=== PATIENT | male | born 1955 | race Caucasian/White ===

== ENCOUNTER 2017-11-12 23:18 | Observation (INO) | payer SELFPAY ==
[~2017-11-12] VITALS: Ht 193 cm; Wt 90.7 kg
[~2017-11-12 23:18] MED LIST: LISINOPRIL10 MG PO; ZANTAC150 MG PO
[2017-11-13 00:13] LABS: HEMATOCRIT 37.8 % (38.0-50.0); HEMOGLOBIN 13.3 G/DL (12.5-16.6); MCH 31.6 PG (29.0-34.0); MCHC 35.2 G/DL (30.0-36.0); MCV 89.8 FL (86-99); PLATELET COUNT 261 K/uL (156-360); RBC DIS.WIDTH-SD 42.9 % (39-53); RED BLOOD COUNT 4.21 M/uL (4.00-5.50); WHITE BLOOD COUNT 8.1 K/uL (4.1-10.2)
[2017-11-13 00:24] LABS: ALBUMIN 3.6 g/dL (3.2-4.8); CHLORIDE 103 mEq/L (99-109); POTASSIUM 3.6 mEq/L (3.7-5.4); SODIUM 137 mEq/L (136-147)
[2017-11-13 00:27] LABS: GLUCOSE 108 mg/dL (70-99); TOTAL PROTEIN 6.5 g/dL (6.4-8.3)
[2017-11-13 00:29] LABS: TOTAL BILIRUBIN 0.5 mg/dL (0.0-1.0)
[2017-11-13 00:30] LABS: ALKALINE PHOSPHATASE 87 IU/L (3-129); CREATININE 1.2 mg/dL (0.6-1.3); GFR ESTIMATE (CALCULATED) > 59 mL/min/ (58.99-99999)
[2017-11-13 00:31] LABS: UREA NITROGEN (BUN) 14 mg/dL (9-23)
[2017-11-13 00:32] LABS: AST (GOT) 19 IU/L (2-34)
[2017-11-13 00:33] LABS: ALT (GPT) 19 IU/L (3-49)
[2017-11-13 00:34] LABS: LIPASE 29 U/L (1.0-51.0)
[2017-11-13 03:52] VITALS: BP 144/74
[2017-11-13 04:01] LABS: APPEARANCE CLEAR ((CLEAR)); BILIRUBIN NEGATIVE; BLOOD LARGE; COLOR YELLOW ((YELLOW)); GLUCOSE (STRIP) NEGATIVE; KETONES NEGATIVE; LEUKOCYTES NEGATIVE; NITRITE NEGATIVE; PROTEIN (STRIP) NEGATIVE; SPECIFIC GRAVITY 1.026 (1.000-1.030); UROBILINOGEN 0.2 MG/DL (0.2-1.0)
[2017-11-13 04:06] LABS: BACTERIA NONE SEEN /HPF; EPITHELIAL CELLS NONE SEEN /HPF; MUCUS TRACE /LPF; RED BLOOD CELLS TNTC /HPF (0-5); UCUL ADDED? YES; WHITE BLOOD CELLS NONE SEEN /HPF (0-5)
[2017-11-13 08:53] VITALS: BP 125/70
[2017-11-13] MEDS ORDERED: ZESTRIL10 MG PO (09:46)
[2017-11-13 12:31] VITALS: BP 141/87
[2017-11-13 15:31] VITALS: BP 139/68
[2017-11-13 20:17] VITALS: BP 130/71
[2017-11-13 23:59] VITALS: BP 109/61
[2017-11-14 04:21] VITALS: BP 115/64
[2017-11-14 05:48] LABS: BASOPHIL (%) 0.4 % (0-1); EOSINOPHIL COUNT 0.1 K/uL (0-0.3); HEMATOCRIT 37.8 % (38.0-50.0); HEMOGLOBIN 12.6 G/DL (12.5-16.6); IMMATURE GRANULOCYTE (%) 0.3 % (0.0-0.7); LYMPHOCYTE (%) 32.5 % (15-42); LYMPHOCYTE COUNT 2.3 K/uL (1.0-2.8); MCHC 33.3 G/DL (30.0-36.0); MCV 93.1 FL (86-99); MONOCYTE (%) 8.5 % (3-12); MONOCYTE COUNT 0.6 K/uL (0-0.8); NEUTROPHIL (%) 56.3 % (45-76); PLATELET COUNT 270 K/uL (156-360); RBC DIS.WIDTH-CV 13.2 % (11.8-14.6); RBC DIS.WIDTH-SD 45.4 % (39-53); RED BLOOD COUNT 4.06 M/uL (4.00-5.50); WHITE BLOOD COUNT 7.1 K/uL (4.1-10.2)
[2017-11-14 06:01] LABS: CHLORIDE 109 MEQ/L (99-109); CREATININE 1.1 MG/DL (0.6-1.3); GFR ESTIMATE (CALCULATED) > 59 mL/min/ (58.99-99999); GLUCOSE 97 mg/dL (70-99); SODIUM 140 MEQ/L (136-147); UREA NITROGEN (BUN) 9 mg/dL (9-23)
[2017-11-14 06:13] LABS: POTASSIUM 4.8 MEQ/L (3.7-5.4)
[2017-11-14 07:20] VITALS: BP 144/89
[2017-11-14 11:47] VITALS: BP 153/78
[2017-11-14] MEDS ORDERED: TAMSULOSIN HCL0.4 MG PO (14:14)
[2017-11-14] MEDS ORDERED: ENDOCET 5-3251 EACH PO (14:14)
== END 2017-11-14 16:24 | disposition home or self-care (01) ==
LOC: EME 23:18 → EDOF 11-13 02:45 → 4SOUTH 11-13 02:45 → ENRESERV 11-13 02:49 → 4SOUTH 11-13 03:36
PROVIDERS: Hospitalist
DX: N13.2 Hydronephrosis with renal and ureteral calculous obstruction (principal); N21.0 Calculus in bladder; I10 Essential (primary) hypertension; F32.9 Major depressive disorder, single episode, unspecified; F41.9 Anxiety disorder, unspecified; Z82.49 Family history of ischemic heart disease and other diseases of the circulatory system; Z80.3 Family history of malignant neoplasm of breast
CPT/HCPCS: 74019; 74177; 80048; 80053; 81003; 83605; 83690; 85025; 85027; 87086; 99281; 99285; C2625; G0378; J0690; J1100; J1170; J1885; J2270; J2405; J3010; J7030; J7643